=== PATIENT | male | born 1955 | race Caucasian/White ===

== ENCOUNTER → 2021-05-30 | Outpatient (CLI) | payer OTHER ==
--- NOTE | 2021-05-30 14:59 | XR ---
EXAM TYPE: LUMBAR SPINE X RAY SERIES COMPARISON: NONE HISTORY: Pain TECHNIQUE: 4 views are submitted. FINDINGS: Alignment is anatomic. The pedicles are intact. The transverse processes are intact. Postsurgical c hanges involving the mid and lower lumbar spine. There is a grade 1 anterolisthesis of L3 on L4 and L 4 on L5. Moderate multilevel degenerative disc disease. Vacuum disc and severe changes at the thoraco lumbar junction. IMPRESSION: 1. Postsurgical change with the multilevel anterolisthesis. 2. Multilevel moderate to severe degenerative disc disease throughout the remaining portion of the ve rtebral column
--- NOTE | 2021-05-30 15:00 | XR ---
EXAMINATION TYPE: XR cervical spine comp DATE OF EXAM: 05/30/2021 COMPARISON: NONE HISTORY: Pain TECHNIQUE: Four views are submitted. FINDINGS: The odontoid is intact. There are no compression deformities. The prevertebral soft tissue structur es are within normal limits. Postsurgical change and cardiac device is incidentally noted. There is severe multilevel degenerative disc disease extending from level C3-T1 with severe multilevel facet a rthropathy. Multilevel foraminal encroachment is suspected. Could not exclude canal stenosis. Soft ti ssue calcifications are incidentally noted. IMPRESSION: 1. Severe multilevel degenerative disc disease with facet arthropathy and suspected foraminal encroac hment. Recommend follow-up MRI. Canal stenosis in the differential diagnosis.
== END | disposition home or self-care (01) ==
LOC: RADXRMAIN 14:28
PROVIDERS: ATTEND Family Medicine
DX: M51.36 Other intervertebral disc degeneration, lumbar region (principal); M50.33 Other cervical disc degeneration, cervicothoracic region; M12.88 Other specific arthropathies, not elsewhere classified, other specified site
CPT/HCPCS: 72050; 72110